=== PATIENT | male | born 1960 | race Caucasian/White ===

== ENCOUNTER → 2017-12-07 | Outpatient (CLI) | payer OTHER ==
--- NOTE | 2017-12-07 13:07 | DIAGNOSTIC IMAGING REPORT ---
R FOOT MIN 3 VIEWS ROUTINE CLINICAL HISTORY: M77.32,M77.31 RIGHT FOOT PAIN COMPARISON: None. DISCUSSION: No fractures or dislocations are visualized. There is a small plantar calcaneal spur. There are no erosive or destructive changes. IMPRESSION: 1. No evidence of fracture 2. No evidence of erosive disease Electronically signed by: Hao Quevedo M.D. 12/07/2017 1:06 PM Dictated Date/Time: 12/07/2017 1:05 PM
--- NOTE | 2017-12-07 13:10 | DIAGNOSTIC IMAGING REPORT ---
LEFT FOOT 3 VIEWS HISTORY: Left foot pain COMPARISON: None. FINDINGS: There is no fracture or dislocation. Cartilage spaces are maintained for age. Mild soft tissue swelling at the first MTP joint. Only seen on the oblique view there is a small erosion seen within the medial head of the first metatarsal. This erosion demonstrates overhanging edges. Plantar and posterior calcaneal spurs are noted. The Lisfranc joint is well aligned. IMPRESSION: Mild soft tissue swelling at the first MTP joint with a small erosion at the head of the first metatarsal. Findings are concerning for gouty arthritis. Electronically signed by: Gera Abebe M.D. 12/07/2017 1:09 PM Dictated Date/Time: 12/07/2017 1:06 PM
== END | disposition home or self-care (01) ==
LOC: C.RAD 11:53
PROVIDERS: ATTEND Podiatrist Foot & Ankle Surgery
DX: M77.32 Calcaneal spur, left foot (principal); M77.31 Calcaneal spur, right foot; M89.8X7 Other specified disorders of bone, ankle and foot